=== PATIENT | female | born 1955 | race Caucasian/White ===

== ENCOUNTER → 2016-09-20 | Outpatient (CLI) | payer OTHER ==
--- NOTE | 2016-09-21 09:17 | MR ---
MR right femur and thigh HISTORY: Strain of the adductor muscle, pain Multiplanar multisequence imaging obtained through the right thigh. No comparisons Fluid signal is present along the femoral neck posteriorly, cluster of grapes appearance is present, cystic focus measures approximately 2.6 cm in greatest dimension at the base of the femoral neck, the re is an associated joint effusion. Additional cystic foci are present at the inferior aspect of the hip joint again with a cluster of grapes type appearance. Subchondral geode formation present in the femoral head, there is remodeling, marginal spurring, articular cartilage loss compatible with osteoa rthritis. Muscle signal appears to be normal. Incidental note made of possible fibroid uterus, measuring approximately 9 x 7 cm. No significant marvin nopathy or free fluid. IMPRESSION: Osteoarthritis, there may be associated ganglion cysts about the right hip. Plain film co rrelation may be of benefit. Probable fibroid uterus.
== END | disposition home or self-care (01) ==
LOC: RADMRIMAIN 19:23
PROVIDERS: ATTEND Orthopaedic Surgery
DX: M16.11 Unilateral primary osteoarthritis, right hip (principal)

== ENCOUNTER → 2017-02-13 | Outpatient (CLI) | payer OTHER ==
[2017-02-13 13:38] LABS: EKG EKG PERFORMED
[2017-02-13 14:02] LABS: Appearance,Urine Clear (Clear); Bilirubin,Urine Negative (Negative); Glucose,Urine (UA) Negative (Negative); Ketones,Urine Negative (Negative); Leukocyte Esterase,Urine Negative (Negative); Nitrite,Urine Negative (Negative); Protein,Urine Negative (Negative); Specific Gravity,Urine 1.003 (1.001-1.035); UA Billing (MACRO vs. MICRO) CHEM; Urobilinogen,Urine <2.0 mg/dL (<2.0)
[2017-02-13 14:03] LABS: CH 31.3; CHCM 32.5; HCT 45.3 % (34.0-46.0); HDW 2.28; HGB 14.6 gm/dL (11.4-16.0); MCH 31.2 pg (25.0-35.0); MCHC 32.2 g/dL (31.0-37.0); MCV 96.9 fL (80.0-100.0); Mean Platelet Volume 9.1; RBC 4.68 m/uL (3.80-5.40); WBC 7.1 k/uL (3.8-10.6)
[2017-02-13 14:09] LABS: Partial Thromboplastin Time 23.5 sec (22.0-30.0); Prothrombin Time 10.5 sec (9.0-12.0)
[2017-02-13 14:21] LABS: ALT 32 U/L (9-52); AST 24 U/L (14-36); Alkaline Phosphatase 57 U/L (38-126); Anion Gap 6 mmol/L; Blood Urea Nitrogen 19 mg/dL (7-17); Calcium 9.8 mg/dL (8.4-10.2); Carbon Dioxide 28 mmol/L (22-30); Chloride 105 mmol/L (98-107); Glucose 89 mg/dL (74-99); Non-African American GFR(MDRD) >60 (>60 ml/min/1.73 sqM); Sodium 139 mmol/L (137-145); Total Bilirubin 0.5 mg/dL (0.2-1.3); Total Protein 7.4 g/dL (6.3-8.2)
== END | disposition home or self-care (01) ==
LOC: LABPAT 13:11
PROVIDERS: ATTEND Orthopaedic Surgery
DX: Z01.810 Encounter for preprocedural cardiovascular examination (principal); Z01.812 Encounter for preprocedural laboratory examination
CPT/HCPCS: 36415; 80053; 81003; 85027; 85610; 85730; 87070; 93005

== ENCOUNTER 2017-02-22 10:43 | Inpatient (IN) | payer OTHER ==
[2017-02-15 13:38] VITALS: BMI 21.7
[~2017-02-22 10:43] MED LIST: ACETAMINOPHEN TAB 500 MG TAB PO ONE; DIAZEPAM 5 MG TAB PO PRN; HYDROcodone/APAP 5-325MG 1 EACH TAB PO PRN; HYDROcodone/APAP 7.5-325MG 1 EACH TAB PO PRN; HYDROmorphone 0.5 MG/0.5 ML SYRINGE IVP PRN; LIDOCAINE 1% 20 ML VIAL (10MG/ML) FOR IV START INTRADERMA PRN; MAGNESIUM HYDROXIDE 2,400 MG/10 ML CUP PO PRN; MELOXICAM 7.5 MG TAB PO ONE; NALOXONE 0.4 MG/ML 1 ML VIAL IV PRN; ONDANSETRON 4 MG/2 ML VIAL IVP ONE; ONDANSETRON 4 MG/2 ML VIAL IVP PRN; ROPIVACAINE 246.25 MG, EPINEPHrine 0.5 MG, KETOROLAC 30 MG, cloNIDine HCL/PF 80 MCG, WA... MISCELLANE ONE; SCOPOLAMINE 1.5MG/72HR PATCH TRANSDERM ONE; TRANEXAMIC ACID 1,000 MG in SODIUM CHLORIDE 0.9% 100 ML IVPB ONE; ceFAZolin IN SWFI 2 GM/20 ML SYRINGE IVP ONE; hydrOXYzine PAMOATE 25 MG CAP PO PRN
[2017-02-22] MEDS: LACTATED RINGERS 1,000 ML IV SCH (11:29)
[2017-02-22] MEDS ORDERED: MIDAZOLAM 2 MG/2 ML VIAL IV ONE (11:45)
[2017-02-22] MEDS ORDERED: LACTATED RINGERS 1,000 ML BAG IV ONE ×2 (12:45)
[2017-02-22] MEDS ORDERED: SODIUM CHLORIDE 0.9% 100 ML BAG ONE (12:45)
[2017-02-22] MEDS ORDERED: PROPOFOL 10 MG/ML 20 ML VIAL IV ONE (12:45)
[2017-02-22] MEDS ORDERED: MIDAZOLAM 2 MG/2 ML VIAL ONE (12:45)
[2017-02-22] MEDS ORDERED: TRANEXAMIC ACID 1,000 MG/10 ML VIAL ONE (12:45)
[2017-02-22] MEDS ORDERED: KETAMINE 10 MG/ML 20 ML VIAL ONE (12:45)
[2017-02-22] MEDS ORDERED: ceFAZolin 1,000 MG VIAL ONE (12:45)
[2017-02-22] MEDS ORDERED: fentaNYL (PF) 50 MCG/ML 2 ML AMP ONE (12:45)
[2017-02-22] MEDS ORDERED: LIDOCAINE 1% INJ 10MG/ML (20 ML MDV) ONE (12:45)
[2017-02-22] MEDS ORDERED: HEPARIN SODIUM,PORCINE 10,000 UNIT/ML 1 ML VIAL ONE ×2 (12:45)
[2017-02-22] MEDS ORDERED: LACTATED RINGERS 1,000 ML IV ONE (13:30)
--- NOTE | 2017-02-22 14:17 | P.OP ---
Date of Procedure: 02/22/17 Preoperative Diagnosis: Severe osteoarthritis right hip Postoperative Diagnosis: Severe osteoarthritis right hip Procedure(s) Performed: Right total hip arthroplasty with a direct anterior approach Implants: Mendez and nephew Polarstem size 7 standard Mendez & Nephew R3, 3 hole acetabular shell, 52 mm Mendez & Nephew reflection 6.5 mm cancellus screw, 20 mm 2 Mendez [employer] Nephew R3, XLPE 20 acetabular liner Mendez & Nephew Oxinium femoral head 36 m, +0 All components were press-fit. The articulation is Oxinium on polyethylene. Anesthesia: spinal Surgeon: David Young Tie Fastener #1: Gali Ceron Estimated Blood Loss (ml): 75 Pathology: other (Femoral head) Condition: stable Disposition: PACU Indications for Procedure: After failure of conservative treatment we discussed the surgical and nonsurgical treatment options at length. Patient wishes to proceed with a total hip arthroplasty with a direct anterior approach. Complications specific to this procedure were discussed at length, including but not limited to infection, leg length discrepancy, dislocation, and nerve injury. Patient is aware of all these complications and informed consent was obtained Operative Findings: The operative findings are consistent with severe osteoarthritis of the right hip Description of Procedure: Patient was seen and evaluated in the preoperative area, consent was reviewed, and the surgical site was marked with a skin marker. Patient was then brought to the operating room and given prophylactic antibiotics intravenously. 1 g of Tranexamic acid was also given. A spinal anesthetic was administered by the anesthesia department. The patient was then placed on the [place] table with the bony prominences well-padded. The hip area was then prepped and draped in usual sterile fashion. A universal timeout was then performed, which confirmed the patient's name, surgical site, ALLERGIES, and procedure being performed. Next the incision site was located at 1 cm distal and 1 cm lateral to the anterior superior iliac spine. The skin and subcutaneous tissues were sharply incised. Incision was carefully dissected down to the fascia overlying the tensor fascia isa muscle. This fascia was then incised in line with the incision. Next, using blunt finger dissection, the tensor fascia isa muscle was dissected off its investing fascia. The muscle was then carefully retracted laterally with a cobra retractor over the lateral neck of the femur. Next, the circumflex vessels were identified and cauterized using the AquaMantis device. The anterior hip capsule was then exposed. The capsule was then opened and an inverted T fashion. Cobra retractors were then placed intracapsularly. The proximal femur was then visualized. The femoral neck was then osteotomized appropriate level above the lesser trochanter. Small amount of traction was placed with the [place] table. A small wedge of bone was then removed from the remaining femoral head. Next, using a corkscrew femoral head was easily removed from the acetabulum. On gross visual inspection, the femoral head had complete loss of articular cartilage in multiple periarticular osteophytes. Attention was then turned to the acetabulum. the acetabulum was exposed and any remaining labrum was excised. Sequential reaming of the acetabulum was performed using fluoroscopic guidance. When the appropriate size was reached, a trial was then placed. The position and fit of the trial was checked with fluoroscopy. The trial was then removed. Then, using fluoroscopic guidance, the final implant was impacted at 20 of anteversion and 40 of abduction, and fully seated in the acetabulum. 2 screws were then placed in the acetabulum. Again fluoroscopy was used to check position of the screws. Next, the liner was then impacted, with a 20 elevated liner located in the anterior superior quadrant. Component locking was confirmed. Attention was then directed to the femur. With the aid of the [place] table, the femur was externally rotated to approximately 130, extended, and abducted under the opposite leg. A side hook was then placed under the proximal femur, and the side hook elevator was used to elevate the proximal femur. Retractors were then placed. A capsular release was performed, as well as a release of the conjoined tendon, which afforded excellent visualization of the proximal femur. Next, a box osteotome was used to lateralize the proximal femur. A hand worker was then used to locate the femoral canal. Sequential broaching was then performed with appropriate size which afforded excellent fixation in the proximal femur. A trial was then placed with appropriate head and neck, and the hip was gently reduced with the aid of the [place] table. Fluoroscopy was then used to check position of the components, as well as to ensure equal leg lengths. The hip was then gently dislocated and the trials were then removed. Final implants were then impacted and the hip was again reduced. Final fluoroscopic x-rays confirmed that the components were in anatomic position, as well as equal leg lengths. The hip was also taken through range of motion, and found to be stable. The hip was then copiously irrigated with antibiotic solution with pulsatile lavage. The hip was then irrigated with Irrisept solution. The soft tissues were then injected with a ropivacaine solution, which consisted of 246.25 mg of ropivacaine, 0.5 mg of epinephrine, 30 mg of Toradol, 80 g of clonidine, and 48.45 mL of sterile water, for a total of 100 mL of fluid injected. A second dose of 1 g of Tranexamic acid was also given. the fascia was then closed with 2-0 strata fix suture. The subcutaneous tissue was closed with 3-0 Vicryl. The subcuticular tissue was closed with 3-0 strata fix suture. The skin was then closed with Dermabond glue with a sterile silver dressing. The patient was then transferred to the recovery room in stable condition. The data assistant JODY Stein was required due to the complexity of surgery, and the need for skilled surgical instrument mechanic for positioning, draping, exposure, retraction, and closure of the wound.
--- NOTE | 2017-02-22 14:18 | FL ---
EXAMINATION TYPE: FL guidance operating room DATE OF EXAM: 02/22/2017 HISTORY: Flouroscopy time 51 seconds of fluoroscopy provided. IMPRESSION: 1. Fluoroscopy time.
--- NOTE | 2017-02-22 14:18 | XR ---
EXAMINATION TYPE: XR Hip Limited RT DATE OF EXAM: 02/22/2017 COMPARISON: NONE HISTORY: Postop TECHNIQUE: One view submitted. FINDINGS: There is a prosthetic hip in near anatomic alignment. There is soft tissue edema and emphysema. IMPRESSION: 1. Postoperative change. Appears in near-anatomic alignment.
[2017-02-22 15:02] VITALS: RESP 16
[2017-02-22] MEDS: HYDROcodone/APAP 7.5-325MG 1 EACH TAB PO PRN (15:59)
[2017-02-22] MEDS: SODIUM CHLORIDE 0.9% 1,000 ML IV SCH (16:59)
--- NOTE | 2017-02-22 20:04 | P.CON ---
Consult Note - . Consult date: 02/22/17 Assessment/Plan:: CONSULTATION DATE OF CONSULTATION: 02/22/2017 REASON FOR CONSULTATION: medical management HISTORY OF PRESENT ILLNESS: this is a 61-year-old female patient of Dr. David Young who is status post right total hip arthroplasty with direct anterior approach. REVIEW OF SYSTEMS: GEN.: [tired] EYES: [None] HEENT: ill fitting dentures] NECK: [None] RESPIRATORY: [cough] CARDIOVASCULAR: [None] GASTROINTESTINAL: [None] GENITOURINARY: [urinary leaking] MUSCULOSKELETAL: [carpal tunnel bilaterally] LYMPHATICS: [None] HEMATOLOGICAL: [None] PSYCHIATRY: [None] NEUROLOGICAL: [None] PAST MEDICAL HISTORY: osteoarthritis, carpal tunnel, COPD, essential hypertension PAST SURGICAL HISTORY: lateral carpal tunnel surgery, right hand surgery, tonsillectomy, orthopedic surgery, appendectomy, adenoidectomy, SOCIAL HISTORY: smoking history:quit smoking 01/28/2017, 40 years times one pack per day Alcohol use history:approximately 14 beers a week Drug use history:uses marijuana daily before bed Marital status: Lives with: 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 BMI noted] GENERAL: [Average built, sitting up, comfortable]. EYES: [Pupils equal. Conjunctiva josé]l. HEENT: [External appearance of nose and ears normal, oral cavity grossly normal] . NECK: [JVD not raised; masses not palpable]. HEART: [First and second heart sounds are normal; no edema]. LUNGS:[ Respiratory rate normal; clear to auscultation]. ABDOMEN: [Soft, nontender, liver spleen not palpable, no masses palpable]. LYMPHATICS: [No lymph nodes palpable in the axilla and neck]. PSYCH: [Alert and oriented x3; mood and affect josé]l. NEUROLOGICAL: [Cranial nerves grossly intact; no facial asymmetry, power and sensation grossly intact]. INTEGUMENT: Right anterior hip incision covered with a surgical dressing no drainage noted. INVESTIGATIONS: no new labs ASSESSMENT: -right total hip arthroplasty in a patientwho has severe osteoarthritis failed conservative treatment -Essential hypertension -bilateral carpal tunnel -chronic obstructive pulmonary disease in an ex-smoker -primary osteoarthritis in multiple joints bilateral. PLAN: home medications reordered, continue current medication and treatment plan. Discussed with patient and at the bedside there in agreement we'll follow closely Thank you Dr. Young for this kind referral and allowing us to participate in the care of your patient. RELIABILITY MANAGER STATEMENT: Patient was seen and examined by nurse practitioner Makenna Coronado and all elements of the case discussed with attending Dr. Jordan.
[2017-02-22] MEDS ORDERED: SENNOSIDES-DOCUSATE SODIUM 1 EACH TAB PO SCH (21:00)
--- NOTE | 2017-02-22 22:34 | CONS ---
CONSULTATION ATTENDING NOTE: This patient was seen and examined by me. I discussed with my nurse practitioner, Olindageneva. The patient has undergone a right total knee arthroplasty. Some pain is present. Patient also has arthritic pain in the hands. The patient often time has runny stools, has lost over 40 pounds in quite some time, has not really seen anybody for that. The patient at the baseline has a cough, clear sputum most of the days. Stopped smoking a short time ago. EXAM: LUNGS: Diminished breath sounds. Mild wheezing. CARDIOVASCULAR: First and second sounds normal. No edema. ABDOMEN: Soft, nontender. Liver and spleen no palpable. PSYCHIATRY: Alert and oriented x3. Mood and affect normal. INVESTIGATIONS: No blood work from today. ASSESSMENT: 1. Right total knee arthroplasty. 2. Essential hypertension. 3. Primary osteoarthritis, especially of the hands and hips. 4. Chronic obstructive pulmonary disease with predominant chronic bronchitis in an ex- smoker. 5. Possible irritable bowel syndrome with significant weight loss. PLAN: Continue home medications. The patient will be in the hospital put on DuoNeb and told to use inspiratory spirometer. The patient is to follow up with her family doctor and get a referral for GI for abnormal bowel habits. She will at least need a colonoscopy to make sure there is no other reason for her losing weight. Will initiate a GI consult here actually in the hospital. The patient can be followed up regarding the same. Care was discussed in detail with the patient and at the bedside. Thank you, Dr. Young. ASHLEY / DILAN: [id number] /
[2017-02-22] MEDS: ASPIRIN 325 MG TAB PO SCH (22:47)
[2017-02-22] MEDS: ceFAZolin IN SWFI 2 GM/20 ML SYRINGE IVP SCH (22:47)
[2017-02-23] MEDS: HYDROcodone/APAP 7.5-325MG 1 EACH TAB PO PRN ×2 (04:23→11:23)
[2017-02-23] MEDS: ceFAZolin IN SWFI 2 GM/20 ML SYRINGE IVP SCH (06:17)
[2017-02-23 07:31] LABS: Basophils % (A) 0 %; CH 30.6; CHCM 32.3; Eosinophils % (A) 0 %; HCT 37.9 % (34.0-46.0); HDW 2.13; HGB 12.2 gm/dL (11.4-16.0); Luc # (Auto) 0.04; Luc % (Auto) 0; Lymphocytes # (A) 1.3 k/uL (1.0-4.8); Lymphocytes % (A) 12 %; MCH 30.6 pg (25.0-35.0); MCHC 32.1 g/dL (31.0-37.0); MCV 95.2 fL (80.0-100.0); Mean Platelet Volume 10.5; Monocytes # (A) 0.6 k/uL (0-1.0); Monocytes % (A) 5 %; Neutrophils % (A) 82 %; RBC 3.98 m/uL (3.80-5.40); RDW 13.8 % (11.5-15.5); WBC (Perox) 11.51
[2017-02-23 07:46] VITALS: BP 121/62; PULSE 68; TEMP 98.6
[2017-02-23] MEDS: ASPIRIN 325 MG TAB PO SCH (07:52)
[2017-02-23] MEDS: SODIUM CHLORIDE 0.9% 1,000 ML IV SCH (08:48)
[2017-02-23] MEDS: LACTATED RINGERS 1,000 ML IV SCH (08:48)
[2017-02-23] MEDS ORDERED: MELOXICAM 7.5 MG TAB PO SCH (09:00)
[2017-02-23] MEDS ORDERED: LISINOPRIL 5 MG TAB PO SCH (09:00)
--- NOTE | 2017-02-23 10:03 | P.DS ---
Providers Date of admission: 02/22/17 10:55 Expected date of discharge: 02/23/17 Attending physician: David Young Consults: 02/22/17 10:27 Consult Physician Routine Consulting Provider: Steve Jordan Consult Reason/Comments: medical management Do you want consulting provider notified?: Yes Primary care physician: Cristhian Neumann - Discharge Diagnosis(es) (1) Status post total hip replacement, right Patient was admitted to the OR on 02/22/17 to undergo right total hip arthroplasty. She had failed conservative measures as an outpatient and desired to proceed with elective surgery after given informed consent. She underwent the above procedure which he tolerated well without complication. Postoperative hospital course has remained without complication. On day of discharge she is afebrile, vital signs stable, labs within acceptable ranges, tolerating by mouth meds and diet, voiding without difficulty, positive flatus, denies abdominal pain or calf pain, pain is controlled on oral pain medication and has no new complaints. Wound is benign, neurovascular status is intact, calf is soft and nontender, abdomen soft and nontender. Review of systems is negative for numbness, tingling, fever, chills, chest pain, shortness breath, nausea, vomiting, dizziness, headaches, slurred speech or other Current Visit: Yes Status: Acute Priority: Medium Procedures: Right DANIEL Patient Condition at Discharge: Good Plan - Discharge Summary Discharge Rx Participant: Yes New Discharge Prescriptions: New Aspirin 325 mg PO BID #60 tab HYDROcodone/APAP 7.5-325MG [Arpin 7.5-325] 1 - 2 tab PO Q4-6H PRN #90 tab PRN Reason: Pain Sennosides-Docusate Sodium [Senokot-S] 1 tab PO BID #60 tablet Aspirin 325 mg PO BID #60 tab No Action HYDROcodone/APAP 7.5-325MG [Arpin 7.5-325] 1 tab PO Q6HR PRN PRN Reason: Pain Lisinopril [Prinivil] 5 mg PO QAM Discharge Medication List HYDROcodone/APAP 7.5-325MG [Arpin 7.5-325] 1 tab PO Q6HR PRN 02/15/17 [History] Lisinopril [Prinivil] 5 mg PO QAM 02/15/17 [History] Aspirin 325 mg PO BID #60 tab 02/22/17 [Rx] Aspirin 325 mg PO BID #60 tab 02/22/17 [Rx] HYDROcodone/APAP 7.5-325MG [Arpin 7.5-325] 1 - 2 tab PO Q4-6H PRN #90 tab [Rx] Sennosides-Docusate Sodium [Senokot-S] 1 tab PO BID #60 tablet 02/22/17 [Rx] Follow up Appointment(s)/Referral(s): David Young DO [Doctor of Osteopathic Medicine] - 2 Weeks Activity/Diet/Wound Care/Special Instructions: Weightbearing as tolerated with walker Leave dressing intact. Dressing may be removed by home care nurse in 7 days, . May shower with dressing on. Follow-up with [facility] in 2 weeks, please call with any questions or concerns [phone] Discharge Disposition: HOME WITH HOME HEALTH SERVICES
--- NOTE | 2017-02-23 12:27 | PN ---
PROGRESS NOTE DATE OF SERVICE: 02/23/2017 PRESENTING COMPLAINT: Right knee surgery. INTERVAL HISTORY: Patient is status post right knee surgery, doing much better. Pain is controlled. No nausea, vomiting, tolerating a diet. Very keen to go home. REVIEW OF SYSTEMS: Done for constitutional, cardiovascular, GI, pulmonary; relevant findings as above. CURRENT MEDICATIONS: Reviewed. PHYSICAL EXAMINATION: Temperature 98.6, pulse 68, respirations 16, blood pressure 120/62, pulse ox 98% on room air. GENERAL APPEARANCE: Sitting up, comfortable. EYES: Pupils equal, conjunctivae normal. NECK: JVD not raised, mass not palpable. RESPIRATORY: Effort normal. LUNGS: Slightly decreased breath sounds. CARDIOVASCULAR: First and second sounds normal, no edema. ABDOMEN: Soft, nontender. Liver and spleen not palpable. PSYCHIATRY: Alert and oriented x3. Mood and affect normal. INVESTIGATIONS: White count 11, hemoglobin 12.2. ASSESSMENT: 1. Right total knee arthroplasty. 2. Essential hypertension. 3. Primary osteoarthritis, especially of the hands and hips. 4. Chronic obstructive pulmonary disease, predominant. 5. Chronic bronchitis in an ex-smoker. 6. Possible irritable bowel syndrome with significant weight loss. 7. Mild thrombocytopenia. PLAN: Care was discussed with the patient. She should follow up with Dr. Bailey as an outpatient for a change in bowel habits and the colonoscopy. This was reinforced. Also, have patient check a CBC in view of the platelets in the next 3 days with the family doctor. MMODL / IJN: [id number] /
== END 2017-02-23 14:38 | disposition home health service (06) | DRG 301 ==
LOC: 2ORMAIN 10:55 → 3SUR 15:14
PROVIDERS: ADMIT Orthopaedic Surgery; ATTEND Orthopaedic Surgery
PROC: 0SR906A Replacement of Right Hip Joint with Oxidized Zirconium on Polyethylene Synthetic Substitute, Uncemented, Open Approach (ICD-10-PCS; principal; 2017-02-22 12:30)
DX: M16.11 Unilateral primary osteoarthritis, right hip (principal); D69.6 Thrombocytopenia, unspecified; I10 Essential (primary) hypertension; Z79.891 Long term (current) use of opiate analgesic; Z79.899 Other long term (current) drug therapy; Z87.891 Personal history of nicotine dependence; Z82.49 Family history of ischemic heart disease and other diseases of the circulatory system; Z79.82 Long term (current) use of aspirin; J44.9 Chronic obstructive pulmonary disease, unspecified; G56.03 Carpal tunnel syndrome, bilateral upper limbs; Z82.3 Family history of stroke; K58.9 Irritable bowel syndrome, unspecified
CPT/HCPCS: 73501; 85025; 86850; 86891; 86900; 86901; 88300

== ENCOUNTER → 2019-12-18 | Outpatient (CLI) | payer OTHER ==
--- NOTE | 2019-12-18 13:29 | US ---
EXAMINATION TYPE: US venous doppler duplex UE LT DATE OF EXAM: 12/18/2019 COMPARISON: NONE CLINICAL HISTORY: S42.215D M25.512 I80.P,E78.5,F17.210. Arm pain. No redness. Hx recent humerus delta ak x 2 spots 2 months ago. Patient states severe pain after PT. Not on blood thinners. SIDE PERFORMED: Left Grayscale, color doppler, spectral doppler imaging performed of the deep veins of left upper extremit y. There is normal flow, compressibility and vascular waveforms. Left Arm: Negative for DVT Visualized portions of the left internal jugular vein, subclavian vein, left axillary vein, brachial vein show no abnormal luminal echoes, there is normal color flow and compressibility. The cephalic ve in and radial veins are compressible, basilic vein also compressible and patent. IMPRESSION: No evident deep venous thrombosis within the visualized veins of the left upper extremity.
== END | disposition home or self-care (01) ==
LOC: RADUSWWP 12:17
PROVIDERS: ATTEND Orthopaedic Surgery
DX: S42.215D Unspecified nondisplaced fracture of surgical neck of left humerus, subsequent encounter for fracture with routine healing (principal); M25.512 Pain in left shoulder; E78.5 Hyperlipidemia, unspecified; F17.210 Nicotine dependence, cigarettes, uncomplicated; I80.9 Phlebitis and thrombophlebitis of unspecified site

== ENCOUNTER → 2020-10-20 | Outpatient (CLI) | payer OTHER ==
--- NOTE | 2020-10-20 15:40 | NM ---
EXAMINATION TYPE: NM hepatobiliary w EF DATE OF EXAM: 10/20/2020 COMPARISON: NONE HISTORY: Chronic cholecystitis TECHNIQUE: After the intravenous administration of 4.4 mCi Tc 99m Mebrofenin hepatobiliary scintigrap hy is performed. Immediate images post injection. FINDINGS: There is satisfactory initial accumulation of tracer by the liver. The gallbladder is visualized wit hin 14 minutes. The small bowel activity is noted within 30 minutes. At one hour 8 ounces of oral e nsure plus is given to mimic CCK and gallbladder ejection fraction is calculated at 67 %, in the norm al range. Therefore there is no scintigraphic evidence of cystic or common bile duct obstruction to suggest acute cholecystitis or gallbladder dyskinesia. IMPRESSION: Exam is within normal limits.
--- NOTE | 2020-10-21 07:47 | US ---
EXAMINATION TYPE: US gallbladder DATE OF EXAM: 10/20/2020 COMPARISON: None CLINICAL HISTORY: K81.1 Chronic cholecystitis. Pain EXAM MEASUREMENTS: Liver Length: 16.8 cm Gallbladder Wall: 0.1 cm CBD: 0.6 cm Right Kidney: 9.8 x 5.1 x 3.9 cm Pancreas: wnl Liver: wnl Gallbladder: wnl Evidence for sonographic Novoa's sign: neg CBD: wnl Right Kidney: lower medial lesion = 1.0 x 1.3 x 1.1 cm IMPRESSION: There is a 1.3 cm hypoechoic lesion in the lower right renal pole, possibly representing a cyst but t his is not definitive. Further characterization with MRI abdomen with and without contrast could be p erformed if clinically warranted.
== END | disposition home or self-care (01) ==
LOC: RADUSWWP 11:40
PROVIDERS: ATTEND Surgery Plastic and Reconstructive Surgery
DX: K81.1 Chronic cholecystitis (principal)
CPT/HCPCS: 76705; 78226; A9537

== ENCOUNTER 2020-10-24 07:21 | Day surgery (SDC) | payer OTHER ==
[2020-10-21 11:06] VITALS: BMI 24.3
[~2020-10-24 07:21] MED LIST changes: -ACETAMINOPHEN TAB 500 MG TAB PO ONE; -DIAZEPAM 5 MG TAB PO PRN; -HYDROcodone/APAP 5-325MG 1 EACH TAB PO PRN; -HYDROcodone/APAP 7.5-325MG 1 EACH TAB PO PRN; -HYDROmorphone 0.5 MG/0.5 ML SYRINGE IVP PRN; +LACTATED RINGERS 1,000 ML IV SCH; +LIDOCAINE 1% (10MG/ML) FOR IV START INTRADERMA PRN; -LIDOCAINE 1% 20 ML VIAL (10MG/ML) FOR IV START INTRADERMA PRN; -MAGNESIUM HYDROXIDE 2,400 MG/10 ML CUP PO PRN; -MELOXICAM 7.5 MG TAB PO ONE; -NALOXONE 0.4 MG/ML 1 ML VIAL IV PRN; -ONDANSETRON 4 MG/2 ML VIAL IVP ONE; -ONDANSETRON 4 MG/2 ML VIAL IVP PRN; -ROPIVACAINE 246.25 MG, EPINEPHrine 0.5 MG, KETOROLAC 30 MG, cloNIDine HCL/PF 80 MCG, WA... MISCELLANE ONE; -SCOPOLAMINE 1.5MG/72HR PATCH TRANSDERM ONE; -TRANEXAMIC ACID 1,000 MG in SODIUM CHLORIDE 0.9% 100 ML IVPB ONE; -ceFAZolin IN SWFI 2 GM/20 ML SYRINGE IVP ONE; -hydrOXYzine PAMOATE 25 MG CAP PO PRN
--- NOTE | 2020-10-24 07:39 | P.GSHP ---
History of Present Illness H&P Date: 10/24/20 CHIEF COMPLAINT: GERD and colon screen HISTORY OF PRESENT ILLNESS: The patient is a 65-year-old female who presents with gastroesophageal reflux disease and need for colon screen. Upper and lower endoscopy were offered for further evaluation and management. PAST MEDICAL HISTORY: Please see list. PAST SURGICAL HISTORY: Please see list. MEDICATIONS: Please see list. ALLERGIES: Please see list. SOCIAL HISTORY: No illicit drug use FAMILY HISTORY: No reports of Crohn disease or ulcerative colitis. REVIEW OF ORGAN SYSTEMS: CONSTITUTIONAL: No reports of fevers or chills. GI: Denies any blood in stools or constipation. PHYSICAL EXAM: VITAL SIGNS: Stable GENERAL: Well-developed pleasant in no acute distress. HEENT: No scleral icterus. Extraocular movements grossly intact. Moist buccal mucosa. NECK: Supple without lymphadenopathy. CHEST: Unlabored respirations. Equal bilateral excursions. CARDIOVASCULAR: Regular rate and rhythm. Distal 2+ pulses. ABDOMEN: Soft, nondistended. MUSCULOSKELETAL: No clubbing, cyanosis, or edema. ASSESSMENT: 1. Gastroesophageal reflux disease 2. Colon screen. PLAN: 1. Recommend proceeding with an upper and lower endoscopy Past Medical History Past Medical History: GERD/Reflux, Hypertension, Osteoarthritis (OA) History of Any Multi-Drug Resistant Organisms: None Reported Past Surgical History: Adenoidectomy, Appendectomy, Joint Replacement Additional Past Surgical History / Comment(s): TOTAL RIGHT HIP SURGERY, COLONOSCOPY ,EGD Past Anesthesia/Blood Transfusion Reactions: No Reported Reaction Smoking Status: Former smoker - Past Family History Mother Family Medical History: No Reported History Medications and Allergies Home Medications Medication Instructions Recorded Confirmed Type Atorvastatin [Lipitor] 20 mg PO DAILY 10/21/20 10/21/20 History Lisinopril-Hctz 10-12.5 mg 1 tab PO DAILY 10/21/20 10/21/20 History [Zestoretic 10-12.5] Omeprazole [PriLOSEC] 40 mg PO DAILY 10/21/20 10/21/20 History Allergies Allergy/AdvReac Type Severity Reaction Status Date / Time No Known Allergies Allergy Verified 10/21/20 10:41
[2020-10-24 07:42] VITALS: RESP 16; TEMP 97.2
[2020-10-24] MEDS ORDERED: fentaNYL (PF) 50 MCG/ML 2 ML AMP ONE (08:47)
[2020-10-24] MEDS ORDERED: PROPOFOL 10 MG/ML 20 ML VIAL IV ONE (08:47)
[2020-10-24] MEDS ORDERED: LIDOCAINE 1% INJ 10MG/ML (20 ML MDV) ONE (08:47)
[2020-10-24] MEDS ORDERED: MIDAZOLAM 2 MG/2 ML VIAL ONE (08:47)
--- NOTE | 2020-10-24 09:03 | P.PCN ---
Date of Procedure: 10/24/20 Description of Procedure: PREOPERATIVE DIAGNOSIS: Gastroesophageal reflux disease. History of Rowan's POSTOPERATIVE DIAGNOSIS: Gastritis. Gastroesophageal reflux disease. Diaphragmatic hiatal hernia OPERATION: Esophagogastroduodenoscopy with biopsies along antrum. SURGEON: Carmen Zapata MD ANESTHESIA: MAC. INDICATIONS: The patient is a 65-year-old female who presents with a history of reflux disease. Benefits and risks of the procedure were described. Informed consent was obtained. DESCRIPTION: The patient was brought into the endoscopy suite and laid in the left lateral decubitus position. An Olympus gastroscope was passed along the posterior oropharynx down to the distal esophagus where the squamocolumnar junction was encountered at 38 cm from the incisors. The stomach was entered and no bile reflux was found. Additional findings are listed below. Biopsies with cold forceps were obtained of the antrum. The first through third portion of the duodenum was examined and unremarkable. Retroflexion of the scope confirmed Hill grade 2 lower esophageal valve. The squamocolumnar junction demonstrated LA grade B erosive esophagitis. The stomach was desufflated. The patient tolerated the procedure well. FINDINGS: Squamocolumnar junction 38 cm from the incisors. Diaphragmatic hiatus at 40 cm. Hiatal hernia, 2 cm, sliding type Hill grade 2 lower esophageal valve. LA grade B erosive esophagitis. No active duodenitis. Chronic gastritis RECOMMENDATIONS: Upper endoscopy as needed.
--- NOTE | 2020-10-24 09:27 | P.PCN ---
Date of Procedure: 10/24/20 Description of Procedure: PREOPERATIVE DIAGNOSIS: Change in bowel habits Blood in stool POSTOPERATIVE DIAGNOSIS: Adenoma of the ascending colon Internal and external hemorrhoids, grade 2 OPERATION: Colonoscopy to the ileocecal valve and appendiceal orifice, cecum Colonoscopy with hot snare polypectomy SURGEON: Carmen Zapata MD. ANESTHESIA: MAC. INDICATIONS: The patient is an 65-year-old male who presents with change in bowel habits or blood in stools. Benefits and risks were described and informed consent was obtained. DESCRIPTION OF PROCEDURE: The patient MiraLAX Gatorade prep. The patient had been brought into the operating room and laid in the left lateral decubitus position. After adequate intravenous sedation, the rectum was examined with 2% lidocaine jelly. External hemorrhoids were encountered. The rectal tone was within normal limits. No lesions were palpated in the rectal vault. An Olympus colonoscope was advanced until the cecum, ileocecal valve and appendiceal orifice were clearly viewed. The prep was fair. No sigmoid diverticulosis was encountered. The sigmoid colon was redundant requiring abdominal wall pressure. Colonic polyps were found and removed. No evidence of focal colitis was found. Retroflexion of the scope demonstrated grade 2 internal hemorrhoids without active bleeding or inflammation. The colon was desufflated. The patient had tolerated the procedure well. Withdrawal time was over 6 minutes. FINDINGS: Aronchick preparation quality scale 2 (1-5) Internal hemorrhoids, grade 2 External hemorrhoids, grade 2. No arteriovenous malformations. No sigmoid diverticulosis Removal of 1 polyp: - Snare polypectomy ascending colon polyp, 5 mm tubulovillous adenoma polyp. No focal colitis. RECOMMENDATIONS: Repeat colonoscopy in 3 years, 2023 Plan - Discharge Summary Discharge Rx Participant: No New Discharge Prescriptions: Continue Lisinopril-Hctz 10-12.5 mg [Zestoretic 10-12.5] 1 tab PO DAILY Omeprazole [PriLOSEC] 40 mg PO DAILY Atorvastatin [Lipitor] 20 mg PO DAILY Discharge Medication List Atorvastatin [Lipitor] 20 mg PO DAILY 10/21/20 [History] Lisinopril-Hctz 10-12.5 mg [Zestoretic 10-12.5] 1 tab PO DAILY 10/21/20 [History] Omeprazole [PriLOSEC] 40 mg PO DAILY 10/21/20 [History] Follow up Appointment(s)/Referral(s): Carmen Zapata MD [STAFF PHYSICIAN] - 11/08/20 Patient Instructions/Handouts: Hiatal Hernia (DC), Colorectal Polyps (GEN) Activity/Diet/Wound Care/Special Instructions: Repeat colonoscopy in 3 years, 2023 Discharge Disposition: HOME SELF-CARE
[2020-10-24 09:44] VITALS: PULSE 71
[2020-10-24 10:05] VITALS: BP 159/103
== END 2020-10-24 10:18 | disposition home or self-care (01) ==
LOC: ORWHC2ENDO 07:21
PROVIDERS: ATTEND Surgery Plastic and Reconstructive Surgery
DX: R19.4 Change in bowel habit (principal); K92.1 Melena; D12.2 Benign neoplasm of ascending colon; K64.4 Residual hemorrhoidal skin tags; K64.8 Other hemorrhoids; Z79.899 Other long term (current) drug therapy; I10 Essential (primary) hypertension; K21.9 Gastro-esophageal reflux disease without esophagitis; M19.90 Unspecified osteoarthritis, unspecified site; Z87.891 Personal history of nicotine dependence; E78.5 Hyperlipidemia, unspecified
CPT/HCPCS: 88305; 45385; 43239; J2250; J2001; J3010; J2704

== ENCOUNTER → 2021-03-27 | Outpatient (CLI) | payer MEDICARE, OTHER ==
--- NOTE | 2021-03-28 06:57 | CT ---
EXAMINATION TYPE: CT abdomen pelvis w con DATE OF EXAM: 03/27/2021 HISTORY: Chronic diarrhea, diarrhea of large intestines CT DLP: 923mGycm Automated Exposure Control for Dose Reduction was Utilized. CONTRAST: CT scan of the abdomen and pelvis is performed with oral and with IV Contrast, patient injected with 100 mL of Isovue 300. COMPARISON: None. FINDINGS: LUNG BASES: Mild bibasilar linear scarring and/or atelectasis. LIVER/GB: No significant abnormality is appreciated. PANCREAS: No significant abnormality is seen. SPLEEN: No significant abnormality is seen. ADRENALS: No significant abnormality is seen. KIDNEYS: Symmetrical medullary uptake and excretion without hydronephrosis. There is 1.0 cm partially exophytic thin-walled cyst anteriorly lower pole of right kidney coronal image 35. BOWEL: Oral contrast only reaches level of cecum making evaluation of distal bowel suboptimal. No katerina picious small or large bowel dilatation is present. There is redundant sigmoid colon. No significant diverticulosis or CT evidence for acute diverticulitis. UTERUS/ADNEXA: Anteverted uterus with lobulated contour having areas of calcification consistent with fibroid uterus. LYMPH NODES: No greater than 1cm abdominal or pelvic lymph nodes are appreciated. OSSEOUS STRUCTURES: Metallic hardware from right hip arthroplasty causes streak artifact limiting candy luation of pelvic structures. Moderate to severe disc space narrowing with vacuum disc phenomenon L4- L5 and L5-S1 levels. OTHER: Mild peripheral plaque aorta extends into branch vessels. IMPRESSION: No significant colonic diverticulosis or CT evidence for acute diverticulitis.
== END | disposition home or self-care (01) ==
LOC: RADCTMAIN 13:48
PROVIDERS: ATTEND Surgery Plastic and Reconstructive Surgery
DX: K57.32 Diverticulitis of large intestine without perforation or abscess without bleeding (principal)
CPT/HCPCS: 74177; Q9967

== ENCOUNTER → 2021-05-02 | Outpatient (CLI) | payer MEDICARE, OTHER | END | disposition home or self-care (01) | LOC: LABWHC1 11:31 | PROVIDERS: ATTEND Surgery Plastic and Reconstructive Surgery | DX: I11.9 Hypertensive heart disease without heart failure (principal) | CPT/HCPCS: 36415; 93005 ==

== ENCOUNTER 2021-06-08 09:34 | Day surgery (SDC) | payer MEDICARE, OTHER ==
[2021-06-05 14:40] VITALS: BMI 23.5
[~2021-06-08 09:34] MED LIST changes: +DEXAMETHASONE SOD PHOSPHATE 4 MG/ML 1 ML VIAL IV ONE; +HEPARIN SODIUM,PORCINE/PF 5,000 UNIT/0.5 ML SYRINGE SQ PRN; +HYDROmorphone 0.5 MG/0.5 ML SYRINGE IVP PRN; -LACTATED RINGERS 1,000 ML IV SCH; +MIDAZOLAM 2 MG/2 ML VIAL IV PRN; +ONDANSETRON 4 MG/2 ML VIAL IVP ONE; +Pre Op ABX Message 1 EACH MISC MISCELLANE ONE
[2021-06-08] MEDS: LACTATED RINGERS 1,000 ML IV SCH ×2 (09:57→11:30)
[2021-06-08 10:22] LABS: Basophils # (A) 0.1 k/uL (0-0.2); Basophils % (A) 1 %; Eosinophils # (A) 0.2 k/uL (0-0.7); Eosinophils % (A) 2 %; HCT 43.4 % (34.0-46.0); HGB 14.6 gm/dL (11.4-16.0); Lymphocytes # (A) 2.1 k/uL (1.0-4.8); Lymphocytes % (A) 25 %; MCH 31.7 pg (25.0-35.0); MCHC 33.6 g/dL (31.0-37.0); MCV 94.6 fL (80.0-100.0); Mean Platelet Volume 9.6; Monocytes # (A) 0.4 k/uL (0-1.0); Monocytes % (A) 5 %; Neutrophils # (A) 5.7 k/uL (1.3-7.7); Neutrophils % (A) 67 %; Platelet Count 180 k/uL (150-450); RBC 4.59 m/uL (3.80-5.40); RDW 13.2 % (11.5-15.5); WBC 8.5 k/uL (3.8-10.6)
--- NOTE | 2021-06-08 10:24 | P.GSHP ---
History of Present Illness H&P Date: 06/08/21 CHIEF COMPLAINT: History of intra-abdominal adhesions HISTORY OF PRESENT ILLNESS: The patient is a 65-year-old female who presents with history of intra-abdominal adhesions from multiple prior surgeries including increasing abdominal pain. She now presents for diagnostic laparoscopy including lysis of adhesions. PAST MEDICAL HISTORY: Please see list. PAST SURGICAL HISTORY: Please see list. MEDICATIONS: Please see list. ALLERGIES: Please see list. SOCIAL HISTORY: No illicit drug use FAMILY HISTORY: No reports of Crohn disease or ulcerative colitis. REVIEW OF ORGAN SYSTEMS: CONSTITUTIONAL: No reports of fevers or chills. GI: Denies any blood in stools or constipation. PHYSICAL EXAM: VITAL SIGNS: Stable GENERAL: Well-developed pleasant and in no acute distress. HEENT: No scleral icterus. Extraocular movements grossly intact. Moist buccal mucosa. NECK: Supple without lymphadenopathy. CHEST: Unlabored respirations. Equal bilateral excursions. CARDIOVASCULAR: Regular rate and rhythm. Distal 2+ pulses. ABDOMEN: Soft, diffuse abdominal tenderness. No peritonitis. MUSCULOSKELETAL: No clubbing, cyanosis, or edema. ASSESSMENT: 1. Diffuse abdominal pain. 2. History of multiple abdominal surgeries. 3. Intra-abdominal adhesions. PLAN: 1. Robotic lysis of adhesions were described in detail including risk of injury to the intestine, need for further surgery, and open technique. 2. DVT prophylaxis. 3. Antibiotic prophylaxis. Past Medical History Past Medical History: GERD/Reflux, Hyperlipidemia, Hypertension, Osteoarthritis (OA) Additional Past Medical History / Comment(s): Hiatal hernia. Hx left arm fracture in 2 spots. History of Any Multi-Drug Resistant Organisms: None Reported Past Surgical History: Appendectomy, Tonsillectomy Additional Past Surgical History / Comment(s): Left total hip replacement, bilateral hand surgery X2. Past Anesthesia/Blood Transfusion Reactions: No Reported Reaction Past Psychological History: No Psychological Hx Reported Smoking Status: Former smoker Past Alcohol Use History: Daily Additional Past Alcohol Use History / Comment(s): Quit smoking 1 week ago, smoked 40 yrs, 1/2 ppd. Drinks approx 2 beers daily. Past Drug Use History: Marijuana Additional Drug Use History / Comment(s): Medical Marijuana daily. Aware no alcohol or Marijuana 24 hrs prior to procedure. - Past Family History Mother Family Medical History: No Reported History Medications and Allergies Home Medications Medication Instructions Recorded Confirmed Type Lisinopril-Hctz 10-12.5 mg 1 tab PO QAM 10/21/20 06/05/21 History [Zestoretic 10-12.5] Omeprazole [PriLOSEC] 40 mg PO QAM 10/21/20 06/05/21 History Allergies Allergy/AdvReac Type Severity Reaction Status Date / Time No Known Allergies Allergy Verified 06/08/21 09:58 Surgical - Exam Vital Signs Temp Pulse Resp BP Pulse Ox 96.5 F L 69 20 144/81 98 06/08/21 10:03 06/08/21 10:03 06/08/21 10:03 06/08/21 10:03 06/08/21 10:03 Results - Labs 06/08/21 10:13
[2021-06-08] MEDS ORDERED: SCOPOLAMINE 1.5MG/72HR PATCH TRANSDERM PRN (10:25)
[2021-06-08] MEDS ORDERED: ACETAMINOPHEN TAB 500 MG TAB PO PRN (10:25)
[2021-06-08] MEDS ORDERED: GABAPENTIN 300 MG CAP PO PRN (10:25)
[2021-06-08] MEDS ORDERED: MELOXICAM 7.5 MG TAB PO PRN (10:25)
[2021-06-08] MEDS ORDERED: MIDAZOLAM 2 MG/2 ML VIAL IVP ONE ×2 (10:46→10:50)
--- NOTE | 2021-06-08 11:04 | P.ANPRN ---
Procedure Note - Anesthesia - Nerve Block Performed 10:45 Time Out Performed: Yes (10:45) Date of Procedure: 06/08/21 Procedure Start Time: :45 Procedure Stop Time: 10:56 Location of Patient: PreOp Indication: Acute Post-Operative Pain, Requested by Surgeon (Dr Amador) Sedation Type: Sedate with meaningful contact maintained Preparation: Sterile Prep Position: Prone Needle Types: Pajunk Needle Gauge: 21 Ultrasound used to visualize needle placement: Yes Ultrasound used to observe medication spread: Yes Injectate: 0.5% Ropivacaine (see comment for volume) (15cc + 5cc PF Normal saline each side) Blood Aspirated: No Pain Paresthesia on Injection Noted: No Resistance on Injection: Normal Image Stored and Saved: Yes Events: Uneventful and Well Tolerated
[2021-06-08] MEDS ORDERED: PROPOFOL 10 MG/ML 20 ML VIAL IV ONE (11:24)
[2021-06-08] MEDS ORDERED: ROCURONIUM 10 MG/ML (5 ML VIAL) IV ONE (11:24)
[2021-06-08] MEDS ORDERED: LABETALOL 5 MG/ML VIAL MDV ONE (11:24)
[2021-06-08] MEDS ORDERED: fentaNYL (PF) 50 MCG/ML 2 ML AMP ONE (11:24)
[2021-06-08] MEDS ORDERED: MIDAZOLAM 2 MG/2 ML VIAL ONE (11:24)
[2021-06-08] MEDS ORDERED: SODIUM CHLORIDE 0.9% (PF) 10 ML VIAL ONE (11:24)
[2021-06-08] MEDS ORDERED: LIDOCAINE 1% INJ 10MG/ML (20 ML MDV) ONE (11:24)
[2021-06-08] MEDS ORDERED: NEOSTIGMINE 1 MG/ML 10 ML VIAL ONE (11:24)
[2021-06-08] MEDS ORDERED: HYDROmorphone (PF) 1 MG/ML ONE (11:24)
[2021-06-08] MEDS ORDERED: ROPIVACAINE 5 MG/ML 30 ML VIAL ONE (11:24)
[2021-06-08] MEDS ORDERED: GLYCOPYRROLATE 0.2 MG/ML 2 ML VIAL ONE (11:24)
[2021-06-08] MEDS ORDERED: SUCCINYLCHOLINE CHLORIDE 100 MG/5 ML SYR IV ONE (11:24)
[2021-06-08] MEDS ORDERED: LACTATED RINGERS 1,000 ML IV ONE (11:54)
[2021-06-08] MEDS ORDERED: BUPIVACAIN-EPI 0.25%-1:200,000 30 ML VIAL SQ ONE (12:02)
[2021-06-08 12:55] VITALS: TEMP 97.7
--- NOTE | 2021-06-08 12:59 | P.OP ---
Date of Procedure: 06/08/21 Description of Procedure: SURGEON: CARMEN ZAPATA MD PREOPERATIVE DIAGNOSES: 1. Chronic lower abdominal pain 2. Chronic abdominal distention 3. History of peritoneal adhesions 4. Hypertensive heart disease 5. Tobacco abuse disorder 6. History of endometriosis POSTOPERATIVE DIAGNOSES: 1. Peritoneal adhesions right upper quadrant 2. Small bowel volvulus proximal jejunum 3. History of peritoneal adhesions 4. Hypertensive heart disease 5. Tobacco abuse disorder OPERATION: 1. Robotic-assisted da Ardha Xi laparoscopic with lysis of adhesions, over 30 minutes ESTIMATED BLOOD LOSS: 5 mL. SPECIMENS REMOVED: None. COMPLICATIONS: None. OPERATIVE FINDINGS: 1. Small bowel intussusception involving proximal to mid jejunum at the left upper quadrant 2. No endometrial deposits identified 3. Moderate omental to abdominal adhesions involving midline and brought up quadrant lysed 4. Adhesion of the left lower abdomen involving sigmoid colon adjustable lysis of adhesions 5. Small bowel investigated from base of cecum to ligament of Treitz with identification of intermittent small bowel dilation involving the jejunum 6. Small bowel mesentery investigated without lead point identified for intussusception INDICATIONS: The patient is a 65-year-old female who presents with moderate to severe left lower quadrant abdominal pain including abdominal distention. Surgical intervention with diagnostic laparoscopy, lysis of adhesions were described. Informed consent was obtained. Robotic assisted laparoscopic approach was described. Benefits and risks of the procedure including but not limited to bleeding, infection, injury to the biliary tree was described. Info rmed consent was obtained. DESCRIPTION OF PROCEDURE: Patient was brought to the operating room, placed in supine position. After general induction, the abdomen had been prepped and draped in standard sterile fashion. The robotic da Radha XI system was primed. After a timeout protocol was performed, the patient had been prepped and draped in standard sterile fashion. The robot was docked along the left lateral abdomen. Please note prior to docking of the robot; however, a 5 mm 0 degrees laparoscopic trocar entry was performed along the left upper quadrant. Next, three 8 mm robotic ports were placed along the upper abdomen. The camera 8-mm port was maintained along the epigastrium. Please note that the ports were placed at least 10 to 15 cm away from the target anatomy. Instruments including graspers and vessel sealer were interchanged by the drug safety assistant. I had sat at the console. Greater omental adhesion from involving the right upper quadrant and midline were lysed using vessel sealer. The small bowel was investigated from the terminal ileum to the ileocecal valve with intermittent junctions of small bowel dilation. At the proximal to mid jejunum, intussusception of 4 cm were reduced. No lead point along the small bowel mesentery was identified. No recurrent intussusception was found. The sigmoid colon had adhesion on the left lower quadrant also addressed using vessel sealer and lysed. No endometrial deposits were identified of the pelvis. Placement adhesions 30 minutes performed. The robot was undocked. All pneumoperitoneum and instruments were evacuated from the abdominal cavity. The incisions were reapproximated using 4-0 Monocryl in an interrupted subcuticular fashion. Please note along the trocar sites, local anesthetic was placed as a field block prior to insertion of all instruments. Exofin was applied to the skin. At the end of the procedure needle, sponge, and instrument count had been verified correct by the surgical lead. The patient was transferred to postanesthesia care unit in stable condition. Plan - Discharge Summary Discharge Rx Participant: Yes New Discharge Prescriptions: New Simethicone [Gas-X] 125 mg PO AC-TID PRN #20 capsule PRN Reason: Pain Ibuprofen [Motrin] 600 mg PO Q8HR PRN #30 tab PRN Reason: Pain Acetaminophen Tab [Tylenol Tab] 1,000 mg PO Q6HR PRN #30 tablet PRN Reason: Pain Continue Lisinopril-Hctz 10-12.5 mg [Zestoretic 10-12.5] 1 tab PO QAM Omeprazole [PriLOSEC] 40 mg PO QAM Discharge Medication List Lisinopril-Hctz 10-12.5 mg [Zestoretic 10-12.5] 1 tab PO QAM 10/21/20 [History] Omeprazole [PriLOSEC] 40 mg PO QAM 10/21/20 [History] Acetaminophen Tab [Tylenol Tab] 1,000 mg PO Q6HR PRN #30 tablet 06/08/21 [Rx] Ibuprofen [Motrin] 600 mg PO Q8HR PRN #30 tab 06/08/21 [Rx] Simethicone [Gas-X] 125 mg PO AC-TID PRN #20 capsule 06/08/21 [Rx] Follow up Appointment(s)/Referral(s): Carmen Zapata MD [STAFF PHYSICIAN] - 06/13/21 (Telehealth ) Patient Instructions/Handouts: *[facility] - Scopalamine Patch Instructions, *[facility] - Managing Your Pain After Surgery Without Opioids, Lysis of Abdominal Adhesions (DC), How to Stop Smoking (DC) Activity/Diet/Wound Care/Special Instructions: Recommend low-fat diet for the next 2 days. No lifting over 10 pounds in 2 weeks until June 22. May shower. No bath tub soaks for two weeks until June 22. Diet as tolerated. Use Tylenol, simethicone and ibuprofen or Aleve scheduled for the next 24-48 hours for best pain relief. Use ice along incisions for today to prevent swelling. Discharge Disposition: HOME SELF-CARE
[2021-06-08 13:40] VITALS: RESP 18
[2021-06-08 13:56] VITALS: BP 107/72; PULSE 51
== END 2021-06-08 14:48 | disposition home or self-care (01) ==
LOC: OR 09:34
PROVIDERS: ATTEND Surgery Plastic and Reconstructive Surgery
DX: K66.0 Peritoneal adhesions (postprocedural) (postinfection) (principal); K44.9 Diaphragmatic hernia without obstruction or gangrene; K56.2 Volvulus; K56.1 Intussusception; K21.9 Gastro-esophageal reflux disease without esophagitis; E78.5 Hyperlipidemia, unspecified; I11.9 Hypertensive heart disease without heart failure; F17.210 Nicotine dependence, cigarettes, uncomplicated; M19.90 Unspecified osteoarthritis, unspecified site; Z98.890 Other specified postprocedural states; Z87.81 Personal history of (healed) traumatic fracture; Z96.642 Presence of left artificial hip joint; Z97.2 Presence of dental prosthetic device (complete) (partial); Z79.899 Other long term (current) drug therapy
CPT/HCPCS: 64999; 84132; 85025; 44180; J2250; J1100; J2710; J0690; J2405; J2001; J3010; J1170 ×2; J2795; J0330; J2704; J1644

== ENCOUNTER → 2023-04-02 | Outpatient (CLI) | payer MEDICARE, OTHER ==
--- NOTE | 2023-04-02 14:22 | CT ---
EXAMINATION TYPE: CT amilcar shoulder LT wo con DATE OF EXAM: 04/02/2023 COMPARISON: None HISTORY: left shoulder pain, pre op CT DLP: 277 mGycm Automated exposure control for dose reduction was used. FINDINGS: There is marked deformity of the left humeral head with multiple subchondral cysts and sclerotic wick ges. There are sclerotic changes in the bony glenoid. There is minimal degenerative change of the AC joint. There is no acute fracture or dislocation. IMPRESSION: 1. MODERATE OSTEOARTHRITIC CHANGE OF THE LEFT GLENOHUMERAL JOINT. 2. MARKED DEFORMITY OF THE LEFT HUMERAL HEAD DESCRIBED ABOVE. 3. MINIMAL DEGENERATIVE CHANGE OF THE AC JOINT. 4. NO ACUTE FRACTURE OR DISLOCATION.
== END | disposition home or self-care (01) ==
LOC: RADCTMAIN 11:26
PROVIDERS: ATTEND Orthopaedic Surgery Hand Surgery
DX: Z01.818 Encounter for other preprocedural examination (principal); M19.012 Primary osteoarthritis, left shoulder; M21.822 Other specified acquired deformities of left upper arm

== ENCOUNTER → 2023-04-02 | Outpatient (CLI) | payer MEDICARE, OTHER ==
[2023-04-02 13:28] LABS: INR 0.9 (<1.2); Prothrombin Time 10.3 sec (10.0-12.5)
[2023-04-02 13:37] LABS: Partial Thromboplastin Time 20.6 sec (22.0-30.0)
[2023-04-02 18:43] LABS: HCT 43.2 % (37.2-46.3); HGB 14.2 g/dL (12.0-15.0); MCH 30.9 pg (27.0-32.0); MCHC 32.9 g/dL (32.0-37.0); MCV 94.1 FL (80.0-97.0); Mean Platelet Volume 13.7 FL (9.5-12.2); NRBC Per 100 WBC 0 X 10*3/uL (0.00-0.01); Platelet Count 166 X 10*3/uL (140-440); RBC 4.59 X 10*6/uL (4.10-5.20); RDW 13.9 % (11.5-14.5); WBC 10.32 X 10*3/uL (4.50-10.00)
[2023-04-02 19:03] LABS: ALT 14 U/L (8-44); AST 23 U/L (13-35); Albumin 4.4 g/dL (3.8-4.9); Albumin/Globulin Ratio 1.83 Ratio (1.60-3.17); Alkaline Phosphatase 64 U/L (41-126); Blood Urea Nitrogen 18.4 mg/dL (9.0-27.0); Calcium 9.6 mg/dL (8.7-10.3); Carbon Dioxide 23.2 mmol/L (21.6-31.8); Chloride 98 mmol/L (96-109); Globulin 2.4 g/dL (1.6-3.3); Glucose 91 mg/dL (70-110); Potassium 4.4 mmol/L (3.5-5.5); Sodium 135 mmol/L (135-145); Total Bilirubin 0.5 mg/dL (0.3-1.2); Total Protein 6.8 g/dL (6.2-8.2)
[2023-04-02 21:24] LABS: Appearance,Urine Clear (Clear); Bilirubin,Urine Negative (Negative); Blood,Urine Negative (Negative); Color,Urine Yellow (Yellow); Ketones,Urine Negative (Negative); Nitrite,Urine Negative (Negative); PH, Urine 6.5; Specific Gravity,Urine 1.016 (1.001-1.030); Urobilinogen,Urine 0.2 E.U./DL
[2023-04-02 21:41] LABS: Bacteria,Urine None Seen (None Seen); Yeast (UA) Present (None Seen)
== END | disposition home or self-care (01) ==
LOC: LABPAT 11:49
PROVIDERS: ATTEND Orthopaedic Surgery Hand Surgery
DX: Z01.818 Encounter for other preprocedural examination (principal); M19.012 Primary osteoarthritis, left shoulder
CPT/HCPCS: 80053; 81001; 85027; 85610; 85730; 87070; 93005

== ENCOUNTER → 2023-05-02 | Outpatient (CLI) | payer MEDICARE, OTHER ==
[2023-05-02 15:03] LABS: Partial Thromboplastin Time 22.1 sec (22.0-30.0)
[2023-05-02 18:31] LABS: HCT 41.6 % (37.2-46.3); HGB 13.6 g/dL (12.0-15.0); MCH 30.4 pg (27.0-32.0); MCHC 32.7 g/dL (32.0-37.0); MCV 92.9 FL (80.0-97.0); Mean Platelet Volume 12.6 FL (9.5-12.2); NRBC Per 100 WBC 0 X 10*3/uL (0.00-0.01); Platelet Count 218 X 10*3/uL (140-440); RBC 4.48 X 10*6/uL (4.10-5.20); RDW 14.3 % (11.5-14.5); WBC 11.13 X 10*3/uL (4.50-10.00)
[2023-05-02 18:38] LABS: ALT 14 U/L (8-44); AST 17 U/L (13-35); Albumin 4.5 g/dL (3.8-4.9); Albumin/Globulin Ratio 1.88 Ratio (1.60-3.17); Alkaline Phosphatase 58 U/L (41-126); BUN/Creat Ratio 24.71 Ratio (12.00-20.00); Blood Urea Nitrogen 17.3 mg/dL (9.0-27.0); Calcium 9.9 mg/dL (8.7-10.3); Carbon Dioxide 24.5 mmol/L (21.6-31.8); Chloride 101 mmol/L (96-109); Globulin 2.4 g/dL (1.6-3.3); Glucose 79 mg/dL (70-110); Potassium 4.8 mmol/L (3.5-5.5); Sodium 138 mmol/L (135-145); Total Bilirubin 0.4 mg/dL (0.3-1.2); Total Protein 6.9 g/dL (6.2-8.2)
[2023-05-03 04:35] LABS: INR 0.9 (<1.2); Prothrombin Time 10.4 sec (10.0-12.5)
== END | disposition home or self-care (01) ==
LOC: LABPAT 13:44
PROVIDERS: ATTEND Orthopaedic Surgery Hand Surgery
DX: Z01.812 Encounter for preprocedural laboratory examination (principal); M19.012 Primary osteoarthritis, left shoulder
CPT/HCPCS: 36415; 80053; 85027; 85610; 85730

== ENCOUNTER 2023-05-10 11:28 | Day surgery (SDC) | payer MEDICARE, OTHER ==
[~2023-05-10 11:28] MED LIST changes: +ACETAMINOPHEN TAB 500 MG TAB PO PRN; +CLINDAMYCIN 900 MG in DEXTROSE 5% IN WATER 50 ML IVPB PRN; +GABAPENTIN 300 MG CAP PO PRN; -HEPARIN SODIUM,PORCINE/PF 5,000 UNIT/0.5 ML SYRINGE SQ PRN; +MELOXICAM 7.5 MG TAB PO PRN; +ONDANSETRON 4 MG/2 ML VIAL IVP PRN; -Pre Op ABX Message 1 EACH MISC MISCELLANE ONE
[2023-05-10] MEDS: LACTATED RINGERS 1,000 ML IV SCH (12:34)
[2023-05-10] MEDS ORDERED: PROPOFOL 10 MG/ML 20 ML VIAL IV ONE (13:26)
[2023-05-10] MEDS ORDERED: SUCCINYLCHOLINE CHLORIDE 200 MG/10 ML VIAL IV ONE (13:26)
[2023-05-10] MEDS ORDERED: HYDROmorphone (PF) 1 MG/ML ONE (13:26)
[2023-05-10] MEDS ORDERED: MIDAZOLAM 2 MG/2 ML VIAL ONE (13:26)
[2023-05-10] MEDS ORDERED: PHENYLEPHRINE 10 MG/ML VIAL ONE (13:26)
[2023-05-10] MEDS ORDERED: KETAMINE HCL IN 0.9 % NACL 50 MG/5 ML SYRINGE ONE (13:26)
[2023-05-10] MEDS ORDERED: fentaNYL (PF) 50 MCG/ML 2 ML AMP ONE (13:26)
[2023-05-10] MEDS ORDERED: ROCURONIUM 10 MG/ML (5 ML VIAL) IV ONE (13:26)
[2023-05-10] MEDS ORDERED: ROPIVACAINE 5 MG/ML 30 ML VIAL ONE (13:26)
[2023-05-10] MEDS ORDERED: NEOSTIGMINE 1 MG/ML 10 ML VIAL ONE (13:26)
[2023-05-10] MEDS ORDERED: LIDOCAINE 1% INJ 10MG/ML (20 ML MDV) ONE (13:26)
[2023-05-10] MEDS ORDERED: DEXAMETHASONE SOD PHOSPHATE 4 MG/ML 1 ML VIAL ONE (13:26)
[2023-05-10] MEDS ORDERED: GLYCOPYRROLATE 0.2 MG/ML 2 ML VIAL ONE (13:26)
[2023-05-10] MEDS ORDERED: ceFAZolin 1,000 MG in SODIUM CHLORIDE 0.9% 1,000 ML IRRIGATION ONE (14:15)
[2023-05-10] MEDS ORDERED: LACTATED RINGERS 1,000 ML IV ONE (14:15)
[2023-05-10] MEDS ORDERED: SENNOSIDES-DOCUSATE SODIUM 1 EACH TAB PO PRN (15:59)
[2023-05-10] MEDS ORDERED: ONDANSETRON 4 MG/2 ML VIAL IVP PRN (15:59)
[2023-05-10] MEDS ORDERED: HYDROmorphone 0.5 MG/0.5 ML SYRINGE IVP PRN (15:59)
[2023-05-10] MEDS ORDERED: hydrOXYzine pamoate 25 MG CAP PO PRN (15:59)
[2023-05-10] MEDS ORDERED: HYDROmorphone 1 MG/ML 1 ML SYRINGE IVP PRN (15:59)
--- NOTE | 2023-05-10 17:06 | XR ---
EXAMINATION TYPE: XR shoulder limited LT DATE OF EXAM: 05/10/2023 CLINICAL HISTORY: pain COMPARISON: NONE TECHNIQUE: Single view of the left shoulder FINDINGS: Changes of total left shoulder arthroplasty with humeral head component appears well seated . Soft tissue postop changes noted. IMPRESSION: 1. Appropriate postoperative alignment
[2023-05-10] MEDS: CLINDAMYCIN 900 MG in DEXTROSE 5% IN WATER 50 ML IVPB SCH ×2 (22:12)
[2023-05-11] MEDS: oxyCODONE-APAP 5-325MG 1 EACH TAB PO PRN ×2 (03:07→08:12)
[2023-05-11] MEDS: LACTATED RINGERS 1,000 ML IV SCH (07:19)
[2023-05-11] MEDS: CLINDAMYCIN 900 MG in DEXTROSE 5% IN WATER 50 ML IVPB SCH ×2 (07:35)
--- NOTE | 2023-05-11 09:14 | P.DS ---
Providers Expected date of discharge: 05/11/23 Attending physician: Alanna Lundy DO Consults: 05/10/23 16:02 Consult Physician Routine Consulting Provider: Steve Jordan Consult Reason/Comments: medical management Do you want consulting provider notified?: Yes Primary care physician: Cristhian Neumann - Discharge Diagnosis(es) (1) Primary osteoarthritis, left shoulder Current Visit: Yes Status: Acute (2) Status post total replacement of left shoulder Current Visit: Yes Status: Acute Hospital Course: This is a 67-year-old female who has history of severe degenerative arthritis of the left shoulder and presented to discuss surgical options. After discussion and consideration the patient elects to proceed with left total shoulder arthroplasty. The patient is seen preoperatively by their family physician and cleared for surgery. The patient is admitted to [facility] on 05/10/2023 for total left shoulder arthroplasty. She is doing well postoperatively. Vital signs and hemoglobin are stable. The patient is able to get up out of bed independently and is ambulating without assistance. Pain is well controlled. Patient is discharged to home on postoperative day #1 in good condition. Please see med rec for accurate list of home medications. Patient Condition at Discharge: Stable Plan - Discharge Summary Discharge Rx Participant: No New Discharge Prescriptions: New oxyCODONE HCL/ACETAMINOPHEN [Percocet 5-325 mg] 1 tab PO Q4-6H PRN #20 tab PRN Reason: Pain Sennosides-Docusate Sodium [Senokot-S] 2 tab PO DAILY #30 tablet No Action Lisinopril-Hctz 10-12.5 mg [Zestoretic 10-12.5] 1 tab PO QAM Atorvastatin [Lipitor] 20 mg PO QAM Omeprazole [PriLOSEC] 40 mg PO QAM Ibuprofen [Motrin] 800 mg PO Q8H PRN PRN Reason: Pain HYDROcodone/APAP 10-325MG [[place] 10-325] 1 tab PO HS PRN PRN Reason: Pain Discharge Medication List Lisinopril-Hctz 10-12.5 mg [Zestoretic 10-12.5] 1 tab PO QAM 10/21/20 [History] Omeprazole [PriLOSEC] 40 mg PO QAM 10/21/20 [History] Atorvastatin [Lipitor] 20 mg PO QAM 04/23/23 [History] HYDROcodone/APAP 10-325MG [[place] 10-325] 1 tab PO HS PRN 04/23/23 [History] Ibuprofen [Motrin] 800 mg PO Q8H PRN 04/23/23 [History] Sennosides-Docusate Sodium [Senokot-S] 2 tab PO DAILY #30 tablet 05/11/23 [Rx] oxyCODONE HCL/ACETAMINOPHEN [Percocet 5-325 mg] 1 tab PO Q4-6H PRN #20 tab 05/11/23 [Rx] Follow up Appointment(s)/Referral(s): Mine Pena NPC [Nurse Practitioner] - 2 Weeks (Already scheduled. ) Activity/Diet/Wound Care/Special Instructions: Keep Prevena wound vac in place for 1 week. May remove on 05/17/2023. May shower once Prevena is removed without covering incision Ice to shoulder Keep arm in sling but may come out for elbow range of motion exercises. May take over the counter stool softeners as needed for constipation due to pain medication. Follow up in 2 weeks with Mine Pena NP Call [facility] with any questions or concerns, Discharge Disposition: HOME SELF-CARE
[2023-05-11 09:17] VITALS: BP 105/68; PULSE 66; RESP 18; TEMP 98.9
[2023-05-11] MEDS ORDERED: ATORVASTATIN 20 MG TAB PO SCH (11:00)
[2023-05-11] MEDS ORDERED: PANTOPRAZOLE 40 MG TABLET PO SCH (11:00)
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
--- NOTE | 2023-05-12 15:58 | P.OP ---
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 Rotator cuff is intact but there is wear noted on the glenoid. We have discussed and agreed on an anatomic vs reverse total shoulder arthroplasty. Description of Procedure: The patient, operative extremity, and procedure were identified in the preop holding area. After informed consent was obtained, they received a regional block and was brought back to the OR where she was placed under general and placed in the beach chair position. All bony and neurovascular structures were well padded. The upper extremity was then prepped and draped in normal sterile fashion. An oblique incision was then made from just lateral to the corocoid towards the attachment of the deltoid. Dissection was carried down to the delto pectoral interval and the cephalic vein was identified and mobilized laterally. About 5mm of the pectoralis insertion was released. A ferro elevator was swept under the acromion to clear the subdeltoid space. The conjoined tendon was identified and the clavipectoral fascia was released to allow for placement of [employer]. The biceps tendon was located in the groove and released. A tenodesis was performed distal to the bicipital groove with an 0 vicryl. The rotator interval was opened. A subscapularis tenotomy and peel was performed in an oblique fashion. The tendon was tagged with 0 vicryl. The humerus was externally rotated until the joint dislocated. The circumflex arteries were identified and cauterized. The humeral head was completely collapsed. The stemless guide was used to make a cut at the anatomic neck with care taken to preserve the rotator cuff footprint. The capsule was released along the humeral neck. A size 32 guide fit within the cancellous bone. A 32 broaches was inserted and a cap fit to protect the humerus. The capsule was teased away from the subscapularis tendon and removed with bovie cautery. Attention was then turned to the glenoid. The biceps tendon was followed to the labrum which was removed using bovey cautery. The axillary nerve was palpated and protected. The edges of the glenoid were exposed. A size 4 glenoid allowed for maximal coverage without overhanging the rosebud glenoid. The aiming guide was used to insert the guide pin. The appropriate reamers were utilized to create a flat surface. The central hole was drilled and the peripheral peg holes. The trial was placed. There was good coverage without any evidence of rocking. The glenoid was carefully irrigated and cement was placed into the peripheral holes. The glenoid poly final implant was then inserted. The cement was allowed to cure. Attention was then turned back to the humerus. The 21mm trial was inserted. Reduction of the trial showed good tension and stability with about 50% posterior slide and good range of motion. The trials were removed and after irrigating the humerus, the final implants were inserted. Pulse lavage with normal saline was used to irrigate the construct. The subscapularis was reduced. A larks head knot was set to bring the two tendinous edges together superiorly. Inferiorly, the subscapularis tendon was repaired through bone tunnels. The rotator interval was reinforced with side to side sutures. The cephalic vein was found to be torn. The end was cauterized. The remainder of the wound was closed in a layered fashion with 0 vicryl, 3.0 vicryl, 4.0 monocryl, and skin glue. Wound was dressed with a provena dressing. The skilled assistance of the advanced practitioner was necessary through the entirety of the case for retraction and protection of important neurovascular structures.
--- NOTE | 2023-05-12 20:13 | P.ANPRN ---
Procedure Note - Anesthesia - Nerve Block Performed Left Interscalene Single Time Out Performed: Yes Date of Procedure: 05/10/23 Procedure Start Time: 12:41 Procedure Stop Time: 12:46 Location of Patient: PreOp Indication: Acute Post-Operative Pain, Requested by Surgeon Sedation Type: Sedate with meaningful contact maintained Preparation: Sterile Prep Position: Supine Needle Types: Pajunk Needle Gauge: 21 Ultrasound used to visualize needle placement: Yes Ultrasound used to observe medication spread: Yes Blood Aspirated: No Resistance on Injection: Normal Image Stored and Saved: Yes Events: Uneventful and Well Tolerated (Ropivacaine 0.5% 20 cc dexamethasone 4 mg)
== END 2023-05-11 12:10 | disposition home or self-care (01) ==
LOC: OR 11:28 → 4SSUR 16:17 → OR 05-11 12:10
PROVIDERS: ATTEND Orthopaedic Surgery Hand Surgery
DX: M87.812 Other osteonecrosis, left shoulder (principal); K21.9 Gastro-esophageal reflux disease without esophagitis; I10 Essential (primary) hypertension; E78.5 Hyperlipidemia, unspecified; J44.9 Chronic obstructive pulmonary disease, unspecified; F12.90 Cannabis use, unspecified, uncomplicated; Z96.612 Presence of left artificial shoulder joint; Z90.89 Acquired absence of other organs; Z90.49 Acquired absence of other specified parts of digestive tract; Z96.643 Presence of artificial hip joint, bilateral; Z87.891 Personal history of nicotine dependence; Z79.899 Other long term (current) drug therapy
CPT/HCPCS: 73020; 23472; 64415; J2250; J1100; J0690 ×3; J2405; J0736 ×2